=== PATIENT | male | born 1995 | race Caucasian/White ===

== ENCOUNTER 2019-12-02 15:05 | Emergency (ER) | payer SELFPAY ==
[~2019-12-02] VITALS: Ht 177.8 cm; Wt 95.9 kg
[2019-12-02 15:07] VITALS: BP 137/98
--- NOTE | 2019-12-02 15:38 | NUR ---
Pt arrives to ed with chest pain and not feeling well. Reports he feels pressure on occassion and unable to feel well was at work. Pt reports that he did drink 5 beers last night. Pt connected to monitors and call light in reach. Pt has smell of etoh on breath. Pt reports he did need to come in once for a hangover.
[2019-12-02 15:54] LABS: BASOPHILS # (AUTO) 0.01 x10^3/uL (0-0.1); BASOPHILS % (AUTO) 0 % (0-1); EOSINOPHILS # (AUTO) 0.05 x10^3/uL (0-0.4); EOSINOPHILS % (AUTO) 1 % (1-7); LYMPHOCYTES # (AUTO) 1.54 x10^3/uL (1-3.4); LYMPHOCYTES % (AUTO) 18 % (22-44); MD NO; MEAN CORPUSCULAR HEMOGLOBIN 32.9 pg (27.5-34.5); MEAN CORPUSCULAR HGB CONC 34.3 g/dL (33.2-36.2); MEAN CORPUSCULAR VOLUME 95.9 fL (81-97); MONOCYTES # (AUTO) 0.43 x10^3/uL (0.2-0.8); MONOCYTES % (AUTO) 5 % (2-9); NEUTROPHILS # (AUTO) 6.58 x10^3/uL (1.8-6.8); NEUTROPHILS % (AUTO) 76 % (42-75); PLATELET COUNT 298 x10^3/uL (130-400); RED CELL DISTRIBUTION WIDTH 12.2 % (9.4-14.8)
[2019-12-02 16:04] LABS: ALANINE AMINOTRANSFERASE 118 U/L (12-78); ALBUMIN 4.3 g/dL (3.4-5.0); ANION GAP 9 mmol/L (5-15); CALCIUM 9.9 mg/dL (8.5-10.1); CHLORIDE 103 mmol/L (98-107); CREATININE 1.08 mg/dL (0.7-1.3)
--- NOTE | 2019-12-02 16:07 | NUR ---
Pt provided with kerry fluids.
[2019-12-02 16:09] LABS: ALKALINE PHOSPHATASE 66 U/L (45-117); BILIRUBIN,TOTAL 0.7 mg/dL (0.2-1.0); TOTAL PROTEIN 8.2 g/dL (6.4-8.2); TROPONIN I < 0.015 ng/mL (0.000-0.045)
[2019-12-02] MEDS ORDERED: ONDANSETRON ODT 4 MG ONE (17:04)
--- NOTE | 2019-12-02 17:09 | NUR ---
Pt tolerated fluids well.
--- NOTE | 2019-12-02 17:26 | NUR ---
Patient/Caregiver given discharge instructions and they have confirmed that they understand the instructions. Patient ambulatory with steady gait.
[2019-12-02] MEDS ORDERED: ONDANSETRON ODT 4 MG PO ONE (17:30)
== END 2019-12-02 17:28 | disposition home or self-care (01) ==
LOC: ED 16:30
DX: R00.2 Palpitations (principal); F10.239 Alcohol dependence with withdrawal, unspecified; R07.9 Chest pain, unspecified; I10 Essential (primary) hypertension; Y90.9 Presence of alcohol in blood, level not specified
CPT/HCPCS: 36415; 71045; 80053; 83605; 84484; 85025; 93005; 99285; Q0162

== ENCOUNTER 2020-04-19 11:23 | Outpatient (CLI) | payer OTHER | END 2020-04-19 23:59 | disposition home or self-care (01) | LOC: RAD 11:23 | PROVIDERS: ATTEND Family Medicine | DX: Z02.9 Encounter for administrative examinations, unspecified (principal) ==